=== PATIENT | male | born 1955 | race Caucasian/White ===

== ENCOUNTER 2019-05-02 14:45 | Emergency (ER) | payer SELFPAY ==
--- NOTE | 2019-05-02 15:20 | EDM.PDOC ---
ED HPI GENERAL MEDICAL PROBLEM - General Chief Complaint: Lower Extremity Injury/Pain Stated Complaint: INJURED KNEE Time Seen by Provider: 05/02/19 15:16 Source of Information: Reports: Patient History Limitations: Reports: No Limitations - History of Present Illness INITIAL COMMENTS - FREE TEXT/NARRATIVE: HISTORY AND PHYSICAL: History of present illness: Patient is a 63-year-old male presents to the ED with complaint of right knee pain. He states that yesterday he was walking down some stairs and felt a pain in his right knee. He iced his knee but states today pain is worse and he has some swelling. He is not taking anything OTC for the pain. 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 He has no other complaints at this time. Review of systems: As per history of present illness and below otherwise all systems reviewed and negative. Past medical history: As per history of present illness and as reviewed below otherwise noncontributory. Surgical history: As per history of present illness and as reviewed below otherwise noncontributory. Social history: No reported history of drug or alcohol abuse. Family history: As per history of present illness and as reviewed below otherwise noncontributory. Physical exam: General: Patient sitting comfortably in no acute distress and nontoxic appearing HEENT: Atraumatic, normocephalic, pupils reactive, negative for conjunctival pallor or scleral icterus, mucous membranes moist, throat clear, neck supple, nontender, trachea midline. No meningeal signs. Lungs: Clear to auscultation, breath sounds equal bilaterally, chest nontender. Heart: S1S2, regular, negative for clicks, rubs, or overt murmur. Abdomen: Soft, nondistended, nontender. Negative for masses or hepatosplenomegaly. Negative for costovertebral tenderness. No rigidity, rebound , guarding. Pelvis: Stable nontender. Genitourinary: Deferred. Rectal: Deferred. Extremities: No obvious swelling or deformity. Mild medial joint line tenderness to palpation. Atraumatic, negative for cords or calf pain. Neurovascular unremarkable. Neuro: Awake, alert, oriented. Cranial nerves II through XII unremarkable. Cerebellum unremarkable. Motor and sensory unremarkable throughout. Exam nonfocal. Notes: Diagnostics: declined x-ray Therapeutics: declined pain medication Prescriptions: Diclofenac Impression: Right knee pain Plan: 1. Ice, elevate, and motrin or tylenol as needed 2. Follow up with orthopedics, please call the number provided to schedule an appointment 3. Return to ED as needed as discussed Definitive disposition and diagnosis as appropriate pending reevaluation and review of above. right knee Pain Score (Numeric/FACES): 4 - Related Data Allergies Allergy/AdvReac Type Severity Reaction Status Date / Time No Known Allergies Allergy Verified 05/02/19 14:59 Home Meds: Home Meds Diclofenac Sodium [Voltaren] 75 mg PO BIDMEALS #20 tab.cr 05/02/19 [Rx] Past Medical History - Past Health History Medical/Surgical History: Denies Medical/Surgical History Cardiovascular History: Reports: Afib - Past Surgical History HEENT Surgical History: Reports: Tonsillectomy Social & Family History - Family History Family Medical History: Noncontributory - Tobacco Use Smoking Status *Q: Never Smoker - Recreational Drug Use Recreational Drug Use: No Review of Systems - Review of Systems Review Of Systems: Comprehensive ROS is negative, except as noted in HPI. ED EXAM, GENERAL - Physical Exam Exam: See Below (see dictation) Course - Vital Signs Last Recorded V/S: Last Vital Signs Temp 96.0 F 05/02/19 14:55 Pulse 84 05/02/19 14:55 Resp 18 05/02/19 14:55 BP 123/75 05/02/19 14:55 Pulse Ox 96 05/02/19 14:55 Departure - Departure Time of Disposition: 15:19 Disposition: Home, Self-Care 01 Condition: Good Clinical Impression: Right knee pain - Discharge Information Prescriptions: Diclofenac Sodium [Voltaren] 75 mg PO BIDMEALS #20 tab.cr Referrals: PCP,None [Primary Care Provider] - Additional Instructions: The following information is given to patients seen in the emergency department who are being discharged to home. This information is to outline your options for follow-up care. We provide all patients seen in our emergency department with a follow-up referral. The need for follow-up, as well as the timing and circumstances, are variable depending upon the specifics of your emergency department visit. If you don't have a primary care physician on staff, we will provide you with a referral. We always advise you to contact your personal physician following an emergency department visit to inform them of the circumstance of the visit and for follow-up with them and/or the need for any referrals to a consulting specialist. The emergency department will also refer you to a specialist when appropriate. This referral assures that you have the opportunity for follow-up care with a specialist. All of these measure are taken in an effort to provide you with optimal care, which includes your follow-up. Under all circumstances we always encourage you to contact your private physician who remains a resource for coordinating your care. When calling for follow-up care, please make the office aware that this follow-up is from your recent emergency room visit. If for any reason you are refused follow-up, please contact the [facility] Emergency Department at and asked to speak to the emergency department charge nurse. [facility] [address], [address] [place] [address] 1. Ice, elevate, and motrin or tylenol as needed 2. Follow up with orthopedics, please call the number provided to schedule an appointment 3. Return to ED as needed as discussed Sepsis Event Note - Evaluation Sepsis Screening Result: No Definite Risk - Focused Exam Vital Signs: Vital Signs Temp Pulse Resp BP Pulse Ox 05/02/19 14:55 96.0 F 84 18 123/75 96 Date Exam was Performed: 05/02/19 Time Exam was Performed: 15:16
== END 2019-05-02 15:34 | disposition home or self-care (01) ==
LOC: MW.ED 14:45
DX: M25.561 Pain in right knee (principal)
CPT/HCPCS: 99283

== ENCOUNTER 2021-08-14 06:23 | Emergency (ER) | payer MEDICARE ==
[2021-08-14 07:41] LABS: CARBON DIOXIDE,CO2 19.7 mmol/L (21.0-32.0); POTASSIUM,K 4.8 mmol/L (3.5-5.1)
[2021-08-14] MEDS ORDERED: Lidocaine 2% Viscous Solution 15 ML UD ONE (08:33)
[2021-08-14] MEDS ORDERED: Sodium Chloride 0.9% 2,000 ML IV ONE (08:47)
[2021-08-14] MEDS ORDERED: Lidocaine 2% Viscous Solution 15 ML UD PO ONE (08:47)
[2021-08-14] MEDS ORDERED: Azithromycin 250 MG Tab PO ONE (09:08)
[2021-08-14 11:30] LABS: CARBON DIOXIDE,CO2 16.9 mmol/L (21.0-32.0); POTASSIUM,K 4.1 mmol/L (3.5-5.1)
[2021-08-14] MEDS ORDERED: Lidocaine 2% Jelly 30 ML Tube MUCMEM STA ×2 (11:46→12:22)
[2021-08-14] MEDS ORDERED: Diltiazem 25 MG/5 ML SDV IVPUSH ONE (12:33)
[2021-08-14] MEDS ORDERED: Diltiazem 100 MG in Sodium Chloride 0.9% 100 ML IV SCH (12:45)
[2021-08-14] MEDS ORDERED: Diltiazem 100 MG in Sodium Chloride 0.9% 100 ML IV STA (13:01)
[2021-08-14 15:46] LABS: CARBON DIOXIDE,CO2 16.6 mmol/L (21.0-32.0); POTASSIUM,K 4.2 mmol/L (3.5-5.1)
== END 2021-08-14 18:50 ==
LOC: MW.ED 06:23
DX: J06.9 Acute upper respiratory infection, unspecified (principal); N17.9 Acute kidney failure, unspecified; I48.91 Unspecified atrial fibrillation; R31.0 Gross hematuria; N13.8 Other obstructive and reflux uropathy; N40.0 Benign prostatic hyperplasia without lower urinary tract symptoms
CPT/HCPCS: 36415; 51702; 71045; 80048; 80053; 81003; 84443; 84484; 85025; 85610; 85730; 93005; 96365; 96366; 96376; 99285; A9270; J3490; J7030; 99291

== ENCOUNTER 2021-11-16 13:42 | Emergency (ER) | payer MEDICARE, MEDICAID | END 2021-11-16 16:06 | disposition home or self-care (01) | LOC: MW.ED 13:42 | DX: T83.098A Other mechanical complication of other urinary catheter, initial encounter (principal); R31.9 Hematuria, unspecified; I48.91 Unspecified atrial fibrillation; Z79.899 Other long term (current) drug therapy | CPT/HCPCS: 99283 ==

== ENCOUNTER 2021-11-21 09:06 | Emergency (ER) | payer MEDICARE, MEDICAID ==
[2021-11-21] MEDS ORDERED: Lidocaine 2% Viscous Solution 15 ML UD PO ONE (09:44)
[2021-11-21] MEDS ORDERED: cefTRIAXone 1 GM in Sodium Chloride 0.9% 50 ML IV ONE (11:01)
[2021-11-21] MEDS ORDERED: Sodium Chloride 0.9% 1,000 ML IV ONE ×2 (11:02→14:38)
[2021-11-21 11:11] LABS: CARBON DIOXIDE,CO2 19.3 mmol/L (21.0-32.0); POTASSIUM,K 4.4 mmol/L (3.5-5.1)
[2021-11-21] MEDS ORDERED: Phytonadione 10 MG in Sodium Chloride 0.9% 50 ML IV ONE (11:17)
[2021-11-21] MEDS ORDERED: cefTRIAXone 1 GM AdvVial IV ONE (11:17)
[2021-11-21] MEDS ORDERED: HUM PROTHROMBIN CPLX 2000 UNIT IV ONE ×2 (12:00)
[2021-11-21] MEDS ORDERED: [UNRECOGNIZED DRUG - OTHER] IV ONE ×2 (12:00)
[2021-11-21] MEDS ORDERED: FACTOR IX COMPLEX HUMAN IV ONE ×2 (12:00)
[2021-11-21 12:15] LABS: HEMOGLOBIN A1C 8.6 %
[2021-11-21] MEDS ORDERED: Diltiazem 50 MG/10 ML SDV IVPUSH ONE ×2 (12:23→13:40)
[2021-11-21] MEDS ORDERED: Diltiazem 25 MG/5 ML SDV ONE (12:48)
[2021-11-21] MEDS ORDERED: Diltiazem 25 MG/5 ML SDV IVPUSH ONE ×2 (12:50→14:00)
[2021-11-21] MEDS ORDERED: Diltiazem IR 60 MG Tab PO ONE (13:40)
[2021-11-21] MEDS ORDERED: Insulin Regular, Human 100 Units/ML 10 ML Vial SUBCUT STA (14:38)
== END 2021-11-21 17:26 | disposition left against medical advice (07) ==
LOC: MW.ED 09:06
DX: A41.9 Sepsis, unspecified organism (principal); N39.0 Urinary tract infection, site not specified; K92.2 Gastrointestinal hemorrhage, unspecified; I48.91 Unspecified atrial fibrillation; E11.10 Type 2 diabetes mellitus with ketoacidosis without coma; R79.1 Abnormal coagulation profile; Z53.8 Procedure and treatment not carried out for other reasons; Z79.01 Long term (current) use of anticoagulants; Z79.84 Long term (current) use of oral hypoglycemic drugs; Z79.899 Other long term (current) drug therapy
CPT/HCPCS: 36415; 36430; 70450; 80053; 81001; 82009; 82803; 83036; 83605; 85014; 85018; 85025; 85610; 86850; 86900; 86901; 86920; 87040; 87077; 87086; 87088; 87154; 87186; 93005; 96361; 96365; 96367; 96375; 96376; 99284; A9270; J0696; J1815; J3430; J3490; J7030; J7168; P9016; 93010; 99291; 99292

== ENCOUNTER 2022-01-18 06:17 | Day surgery (SDC) | payer MEDICARE, MEDICAID ==
[~2022-01-18 06:17] MED LIST: Lactated Ringers 1,000 ML IV SCH
[2022-01-18] MEDS ORDERED: Propofol 200 MG/20 ML SDV ONE (07:19)
[2022-01-18] MEDS ORDERED: fentaNYL 100 MCG/2 ML SDV ONE (07:19)
[2022-01-18] MEDS ORDERED: Lidocaine 2% 5 ML SDV ONE (07:23)
[2022-01-18] MEDS ORDERED: Phenylephrine HCl In 0.9% NaCl 1 MG/10 ML Vial ONE (07:55)
== END 2022-01-18 09:23 | disposition home or self-care (01) ==
LOC: MW.SDS 06:17
PROVIDERS: ATTEND Surgery
DX: K57.30 Diverticulosis of large intestine without perforation or abscess without bleeding (principal); I10 Essential (primary) hypertension; E78.5 Hyperlipidemia, unspecified; E11.9 Type 2 diabetes mellitus without complications; K52.9 Noninfective gastroenteritis and colitis, unspecified; I48.91 Unspecified atrial fibrillation; Z91.048 Other nonmedicinal substance allergy status; Z79.899 Other long term (current) drug therapy; Z98.890 Other specified postprocedural states; Z79.01 Long term (current) use of anticoagulants; Z79.84 Long term (current) use of oral hypoglycemic drugs
CPT/HCPCS: 45380; 82947; J2704; J7120; 00812; J3010

== ENCOUNTER 2022-11-23 10:34 | Emergency (ER) | payer MEDICARE, MEDICAID | END 2022-11-23 11:58 | LOC: MW.ED 10:34 | DX: Z02.89 Encounter for other administrative examinations (principal); I48.91 Unspecified atrial fibrillation; E11.9 Type 2 diabetes mellitus without complications; Z91.048 Other nonmedicinal substance allergy status; Z91.09 Other allergy status, other than to drugs and biological substances; Z79.01 Long term (current) use of anticoagulants; Z79.84 Long term (current) use of oral hypoglycemic drugs | CPT/HCPCS: 99282; 99283 ==